=== PATIENT | female | born 1945 | race Caucasian/White ===

== ENCOUNTER 2017-08-08 17:52 | Emergency (ER) | payer MEDICARE, OTHER | END 2017-08-08 20:29 | LOC: ERS 17:52 | DX: K42.9 Umbilical hernia without obstruction or gangrene (principal) | CPT/HCPCS: 93005 ==

== ENCOUNTER 2017-08-11 17:15 | Outpatient (CLI) | payer MEDICARE, OTHER ==
--- NOTE | 2017-08-11 18:41 | RAD ---
TWO VIEWS CHEST: Date: 08-11-17 Provided Clinical History: Pre op. FINDINGS: Comparison 02-04-12. Cardiac and mediastinal silhouette is unchanged in appearance. Large hiatal herni a is redemonstrated. No focal consolidation, pleural fluid or pneumothorax apparent. IMPRESSION: No evidence for an acute cardiopulmonary process. POS: [facility]
--- NOTE | 2017-08-12 16:35 | EKG ---
Test Reason : Blood Pressure : / mmHG Vent. Rate : 074 BPM Atrial Rate : 074 BPM P-R Int : 190 ms QRS Dur : 094 ms QT Int : 388 ms P-R-T Axes : 055 052 020 degrees QTc Int : 430 ms Normal sinus rhythm Non-specific intra-ventricular conduction delay Possible Inferior infarct , age undetermined Cannot rule out Anterior infarct (cited on or before 08-AUG-2017) Abnormal ECG Confirmed by VIKKI GUIDO ([id number]) on 08/12/2017 4:34:27 PM Referred By: QUIANA Confirmed By:VIKKI GUIDO
== END 2017-08-11 17:16 | disposition home or self-care (01) ==
LOC: LABBT 17:15
PROVIDERS: ATTEND Specialist
DX: Z01.818 Encounter for other preprocedural examination (principal); K42.0 Umbilical hernia with obstruction, without gangrene
CPT/HCPCS: 71020; 93005; 93010

== ENCOUNTER → 2017-08-15 | Day surgery (SDC) | payer MEDICARE, OTHER ==
[2017-08-11 17:28] VITALS: BMI 34.0
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
[~2017-08-15] MED LIST: Bupivacaine/Epinephrine 0.25% 30 ML VIAL ONE; Fentanyl 100 MCG/2 ML VIAL ONE; Ketorolac Tromethamine 30 MG/ML VIAL ONE; Levofloxacin 500 mg/D5W 100 ml Premix Bag ONE; Lidocaine 2% PF 5 ML VIAL ONE
--- NOTE | 2017-08-15 14:39 | OP ---
DATE OF ADMISSION: 08/15/2017 PREOPERATIVE DIAGNOSES: Incarcerated umbilical hernia and obesity. POSTOPERATIVE DIAGNOSES: Incarcerated umbilical hernia and obesity. FINDINGS: A small fascial defect, too small for mesh, incarcerated preperitoneal fat and omentum exc ised. PROCEDURE: Incarcerated umbilical hernia repair without mesh. SURGEON: Dr. Luis Ontiveros ANESTHESIA: General. Local 0.25% Marcaine with epinephrine, 30 mL, mixed with 10 mL of 2% Xylocaine . PROCEDURE: The patient was taken to the operating room, where under general anesthesia abdomen was p repared with ChloraPrep and draped in routine fashion. Infraumbilical incision made, carried down th rough the skin and subcutaneous tissue. Hernia mass incarcerated, dissected free down to the fascial defect; it was small, approximately 1 to 1.5 cm. The hernia mass was excised using the cautery exci sing hernia sac and omentum. Fascial defect closed [id number] with interrupted sutures of 0 PDS pop offs. Umbilicus fastened to the fascia with 3-0 Monocryl subcutaneous tissue approximated with continuous suture of 3-0 Monocryl, skin with subdermal 4-0 Monocryl, and DermaGlue applied. Local an esthetic infiltrated about the wound for postoperative pain control. Patient tolerated the procedure well.
== END ==
LOC: SDC 10:42
PROVIDERS: ATTEND Specialist
PROC: 0WQF0ZZ Repair Abdominal Wall, Open Approach (ICD-10-PCS; principal; 2017-08-15)
DX: K42.0 Umbilical hernia with obstruction, without gangrene (principal); E66.9 Obesity, unspecified; M19.90 Unspecified osteoarthritis, unspecified site; E89.0 Postprocedural hypothyroidism; Z68.34 Body mass index [BMI] 34.0-34.9, adult; Z79.899 Other long term (current) drug therapy; Z88.0 Allergy status to penicillin; Z88.2 Allergy status to sulfonamides; Z96.1 Presence of intraocular lens; Z96.652 Presence of left artificial knee joint; Z98.890 Other specified postprocedural states; Z87.11 Personal history of peptic ulcer disease
CPT/HCPCS: J0131; J1885; J1956; J2001; J3010

== ENCOUNTER 2020-12-20 09:35 | Outpatient (CLI) | payer MEDICARE | END 2020-12-20 09:36 | disposition home or self-care (01) | LOC: BICMAMMO 09:35 | PROVIDERS: ATTEND Family Medicine | DX: Z12.31 Encounter for screening mammogram for malignant neoplasm of breast (principal); Z80.3 Family history of malignant neoplasm of breast | CPT/HCPCS: 77063; 77067 ==

== ENCOUNTER 2021-01-05 22:37 | Emergency (ER) | payer MEDICARE ==
[2021-01-05 23:21] LABS: #Basophils 0.1 thou/uL (0.0-0.2); #Eosinphils 0.1 thou/uL (0.0-0.7); #Monocytes 0.8 thou/uL (0.11-0.59); #Neutrophils 11.6 thou/uL (1.40-6.50); %Basophils 0.4 % (0.0-1.0); %Eosinophils 0.9 % (0.0-10.0); %Lymphocytes 13.5 % (21.0-51.0); %Monocytes 5.6 % (0.0-10.0); %Neutrophils 79.6 % (42.0-75.0); Mean Corpuscular HGB CONC 33.2 g/dL (32.0-36.0); Mean Corpuscular Hemoglobin 30.4 pg (27.0-31.0); Mean Corpuscular Volume 91.7 fL (78.0-98.0); Mean Platelet Volume 9.5 fL (7.4-10.4); Platelet Count 243 thou/uL (130-400); RBC Distribution Width 13.5 % (11.5-14.5); Red Blood Cell (RBC) Count 4.93 mill/uL (4.20-5.40); White Blood Cell (WBC) Count 14.6 thou/uL (4.8-10.8)
[2021-01-05] MEDS ORDERED: Lidocaine Viscous Sol 2% 15 ml UD Cup ONE (23:23)
[2021-01-05] MEDS ORDERED: Ondansetron PF 4 MG/2 ML Vial ONE (23:23)
[2021-01-05] MEDS ORDERED: Milk Of Magnesia 30 ML UDCUP ONE (23:23)
[2021-01-05] MEDS ORDERED: Mag-Al 1200 mg/1200 mg/30 ML UDCUP ONE (23:24)
[2021-01-05 23:43] LABS: ALT (SGPT) 18 U/L (8-55); AST (SGOT) 17 U/L (5-34); Albumin 4.4 g/dL (3.4-4.8); Alkaline Phosphatase 143 U/L (40-110); Anion Gap 15 mmol/L (10-20); BUN (Urea Nitrogen) 13 mg/dL (9.8-20.1); Bilirubin, Total 0.7 mg/dL (0.2-1.2); Calc. Creatinine Clearance 0 mL/min (70-130); Calcium 10.9 mg/dL (7.8-10.44); Carbon Dioxide 25 mmol/L (23-31); Chloride 108 mmol/L (98-107); Globulin 3.8 g/dL (2.4-3.5); Glucose 141 mg/dL (83-110); Potassium 3.6 mmol/L (3.5-5.1); Protein, Total 8.2 g/dL (5.8-8.1); Sodium 144 mmol/L (136-145)
[2021-01-06] MEDS ORDERED: Ondansetron PF 4 MG/2 ML Vial ONE (00:54)
[2021-01-06] MEDS ORDERED: Sucralfate 1 GM/10 ML UDCUP ONE (01:18)
[2021-01-06 01:36] LABS: Bilirubin Negative (Negative); Blood, Urine Negative (Negative); Clarity Extra Turbid (Clear); Glucose, Urine (Dipstick) Normal (Negative); Ketone, Urine Negative (Negative); Leukocyte Negative Leu/uL (Negative); Nitrite Negative (Negative); Protein, Urine (Dipstick) 20 mg/dL (Neg-Trace); Specific Gravity, Urine 1.017 (1.002-1.036); Urobilinogen Normal mg/dL (Less than 2); pH, Urine 8.5 (5.0-9.0)
[2021-01-06 02:18] LABS: Troponin I Less than 0.010 ng/mL (< 0.028)
== END 2021-01-06 02:30 | disposition home or self-care (01) ==
LOC: ERS 22:37
DX: K27.9 Peptic ulcer, site unspecified, unspecified as acute or chronic, without hemorrhage or perforation (principal); I10 Essential (primary) hypertension; Z79.899 Other long term (current) drug therapy
CPT/HCPCS: 76705; 80053; 81003; 83690; 84484; 85025; 87086; 93005; 96374; 96376; J2405

== ENCOUNTER 2023-03-05 13:46 | Outpatient (CLI) | payer MEDICARE | END 2023-03-05 13:47 | disposition home or self-care (01) | LOC: BICMAMMO 13:46 | PROVIDERS: ATTEND Family Medicine | DX: Z12.31 Encounter for screening mammogram for malignant neoplasm of breast (principal); Z80.3 Family history of malignant neoplasm of breast | CPT/HCPCS: 77063; 77067 ==

== ENCOUNTER 2024-04-13 05:31 | Observation (INO) | payer MEDICARE ==
[2024-04-08 10:33] VITALS: BMI 31.7
[2024-04-13] MEDS ORDERED: Vancomycin (BATCH) 1.5 GM/300 ML BAG ONE (06:05)
[2024-04-13] MEDS ORDERED: Sodium Chloride 0.9% 100 ML ONE ×2 (06:05→06:47)
[2024-04-13] MEDS ORDERED: Tranexamic Acid 1,000 MG/10 ML VIAL ONE (06:05)
[2024-04-13] MEDS ORDERED: fentaNYL PF 100 MCG/2 ML SYRINGE ONE (06:14)
[2024-04-13] MEDS ORDERED: Midazolam HCl 2 mg/2 ml Vial ONE (06:15)
[2024-04-13] MEDS ORDERED: PROPOFOL 20 ML ONE ×2 (06:15→07:36)
[2024-04-13] MEDS ORDERED: EPINEPHrine 1 MG/ML VIAL ONE ×2 (06:46→07:50)
[2024-04-13] MEDS ORDERED: CEFAZOLIN 2 GM VIAL ONE (06:47)
[2024-04-13] MEDS ORDERED: Bupivacaine 0.25% HCL 30 ML VIAL ONE (06:47)
[2024-04-13] MEDS ORDERED: fentaNYL 50 mcg/mL 1 mL Vial SLOW IVP PRN (07:20)
[2024-04-13] MEDS ORDERED: Ropivacaine 0.2% 550 ML 550 ML NERVE BLCK SCH (07:30)
[2024-04-13] MEDS ORDERED: Ondansetron PF 4 MG/2 ML Vial IVP PRN ×2 (07:30→09:41)
[2024-04-13] MEDS ORDERED: Promethazine HCl 25 MG/ML VIAL IM PRN ×2 (07:30→09:41)
[2024-04-13] MEDS ORDERED: traMADol HCl 50 MG TAB PO PRN ×2 (07:30)
[2024-04-13] MEDS ORDERED: HYDROcodone/Acetaminophen 10/325 mg Tablet PO PRN (07:30)
[2024-04-13] MEDS ORDERED: Zolpidem Tartrate 5 MG TAB PO PRN ×2 (07:30→09:41)
[2024-04-13] MEDS ORDERED: Lidocaine 1% (PF) 30 ML VIAL ONE (07:50)
[2024-04-13] MEDS ORDERED: Bupivacaine PF 0.5% 30 ML VIAL ONE (07:50)
[2024-04-13] MEDS ORDERED: fentaNYL 50 mcg/mL 1 mL Vial ONE ×3 (07:51→12:45)
[2024-04-13] MEDS ORDERED: PHENYLEPHRINE-NS 100 MCG/ML 10 ML SYRINGE ONE (07:54)
[2024-04-13] MEDS ORDERED: HYDROmorphone 2 MG/ML VIAL ONE (08:03)
[2024-04-13] MEDS ORDERED: Dexamethasone 4 mg/ml Vial ONE (08:06)
[2024-04-13] MEDS ORDERED: Ondansetron PF 4 MG/2 ML Vial ONE (08:06)
[2024-04-13] MEDS ORDERED: Metoclopramide HCl 10 MG (2 mL) VIAL ONE (08:06)
[2024-04-13] MEDS ORDERED: Ondansetron HCl/PF 4 MG/2 ML Vial IVP PRN (08:50)
[2024-04-13] MEDS ORDERED: diphenhydrAMINE 25 MG CAP PO PRN (09:41)
[2024-04-13] MEDS: Aspirin 81 mg Enteric Coated Tablet PO SCH ×2 (10:56→20:46)
[2024-04-13] MEDS ORDERED: HYDROcodone/Acetaminophen 10/325 mg Tablet ONE (10:58)
[2024-04-13] MEDS: Sodium Chloride 0.9% 1,000 ML IV SCH (13:34)
[2024-04-13] MEDS: Ketorolac Tromethamine 30 MG (1 mL) VIAL IVP SCH (13:34)
[2024-04-13] MEDS ORDERED: Loratadine 10 MG TAB PO PRN (15:08)
[2024-04-13] MEDS ORDERED: Fluticasone Propionate Nasal Spray 16 gm Bottle NASAL PRN (15:09)
[2024-04-13] MEDS: CEFAZOLIN 2 GM in Sodium Chloride 0.9% 100 ML IVPB SCH (18:08)
[2024-04-14] MEDS: Acetaminophen 325 MG TAB PO PRN (07:14)
[2024-04-14 08:24] VITALS: BP 137/72; TEMP 97.8
[2024-04-14] MEDS: Multivitamin W/ Minerals 1 TAB PO SCH (08:41)
[2024-04-14] MEDS: Senokot S 8.6-50 MG TAB PO SCH (08:42)
[2024-04-14] MEDS: Ferrous Gluconate 324 MG TAB PO SCH (08:42)
[2024-04-14] MEDS: Amlodipine 10 MG TAB PO SCH (08:42)
[2024-04-14] MEDS: Losartan 25 MG TAB PO SCH (08:43)
[2024-04-14] MEDS: HYDROcodone/Acetaminophen 10/325 mg Tablet PO PRN (11:24)
== END 2024-04-14 11:34 | disposition home or self-care (01) ==
LOC: SDC 05:31 → SURG A 14:04 → UNDODISOB 14:12
PROVIDERS: ADMIT Orthopaedic Surgery; ATTEND Orthopaedic Surgery
PROC: 0SRC0JA Replacement of Right Knee Joint with Synthetic Substitute, Uncemented, Open Approach (ICD-10-PCS; principal; 2024-04-13)
PROC: 3E0T3BZ Introduction of Anesthetic Agent into Peripheral Nerves and Plexi, Percutaneous Approach (ICD-10-PCS; 2024-04-13)
DX: M17.11 Unilateral primary osteoarthritis, right knee (principal); K21.9 Gastro-esophageal reflux disease without esophagitis; J30.2 Other seasonal allergic rhinitis; I10 Essential (primary) hypertension; Z90.89 Acquired absence of other organs; Z88.0 Allergy status to penicillin; Z88.2 Allergy status to sulfonamides; Z88.8 Allergy status to other drugs, medicaments and biological substances
CPT/HCPCS: 0055T; 27447; 64447; A4306; C1713; C1776; C1889; J0171; J0665; J1100; J1170; J1885; J2001; J2250; J2405; J2704; J2765; J2795; J3010; J3370; J7030